=== PATIENT | female | born 1990 | race Caucasian/White ===

== ENCOUNTER 2016-10-25 11:23 | Emergency (ER) | payer OTHER ==
[2016-10-25 11:22] LABS: BASOPHIL# 0.1 X10e3 (0-0.3); BASOPHIL% 1.2 % (0-2.5); EOSINOPHIL# 0.1 X10e3 (0-0.7); HEMATOCRIT 41.9 % (35.0-45.0); HEMOGLOBIN 14.1 gm/dL (12.0-16.0); LYMPHOCYTE# 1.9 X10e3 (1.0-3.5); MEAN CELL VOLUME 84.4 FL (83-96); MEAN CORPUSCULAR HEMOGLOBIN 28.5 PG (28-34); MEAN CORPUSCULAR HGB CONC 33.7 g/dL (30-36); MEAN PLATELET VOLUME 10.5 FL (6.5-11.5); MONOCYTE# 0.5 X10e3 (0-1.0); MONOCYTE% 6.4 % (3.0-12.0); NEUTROPHIL# 5.8 X10e3 (1.5-7.1); NEUTROPHIL% 68.4 % (40-75); PLATELET COUNT 193 X10e3 (140-420); RED BLOOD COUNT 4.97 X10e (3.90-5.30); RED CELL DISTRIBUTION WIDTH 13.1 % (11.0-15.5); WHITE BLOOD COUNT 8.5 X10e3 (4.0-10.5)
[~2016-10-25 11:23] MED LIST: AUGMENTIN875 MG PO; BACTRIM DS TABL1 TA1 PO; BACTRIM DS TABL1 TA2 PO; BENADRYL25 M3 PO; ELIMITE60 GM TOP; MEDROL DOSEPAK4 MG PO; MOTRIN600 M1 PO; NO MEDICATIONS; PEPCID AC20 M2 PO; STERAPRED5 MG/DOSE1 PO; VOLTAREN50 MG PO; VOLTAREN75 MG PO; ZOFRAN ODT4 MG PO
[2016-10-25 11:26] LABS: DIFF IND NO
[2016-10-25 11:43] LABS: ALBUMIN SERUM 3.7 g/dL (3.5-5.0); BILIRUBIN,TOTAL 0.5 mg/dL (0.2-2.0); BUN/CREATININE RATIO 12.85; CALCIUM SERUM 8.7 mg/dL (8.4-10.2); CREATININE SERUM 0.7 mg/dL (0.6-1.4); GLOM FILT RATE Estimated 121.3 mL/min (>60); POTASSIUM 3.9 mmol/L (3.5-5.1); PROTEIN TOTAL SERUM 7.2 g/dL (6.0-8.3)
== END 2016-10-25 11:34 | disposition home or self-care (01) ==
LOC: SED 11:23
PROVIDERS: Physician Assistant
DX: R51 Headache (principal); F31.9 Bipolar disorder, unspecified; F17.200 Nicotine dependence, unspecified, uncomplicated
CPT/HCPCS: 36415; 80053; 84702; 85025; 96361; 96374; 99284; J2765

== ENCOUNTER 2016-10-31 21:34 | Emergency (ER) | payer OTHER ==
--- NOTE | ~2016-10-31 | US61 ---
[facility] A Service of [facility] RADIOLOGY TEXT RESULTS PATIENT: JOSE PARRISH LOCATION: SED : [birth year] UNIT #: [id number] AGE: [address]: Monica Gillespie APRN SEX: F ORDER DR: [id number] [address] [address] [id number] MR#: [id number] Acc #: [id number] NAME: JOSE PARRISH : 1990 SEX: F STUDY DATE/TIME: 10/31/2016 23:59 UNIT: SED ROOM: STUDY DESCRIPTION: US /Mat <14Wk / Attending Physician: Monica Gillespie A.P.R.N. Ordering Physician: Monica Gillespie A.P.R.N. [facility] This report is preliminary unless electronic signature is present. EXAM Ultrasound pelvis, early assessment, 10/31/2016 HISTORY 26-year-old female in the ED complaining of 4-day history of abdomen and pelvic pain during first trimester . TECHNIQUE Pelvic ultrasound examination was performed transabdominally and endovaginally. FINDINGS Single living intrauterine gestation. Estimated gestational age using crown-rump length and mean sac diameter is 8 weeks, 0 days with an TAY of 06/12/2017. The gestational sac is normally positioned within the central endometrial cavity. Trivial amount of subchorionic fluid is noted. Embryonic heart rate measures 168 beats per minute. Physiologic left ovary cyst measuring 2.3 cm. No suspicious adnexal region mass. Tiny amount of physiologic free pelvic fluid. IMPRESSION Single living intrauterine gestation at 8 weeks, 0 days. Dictated by... Isak Massey M.D. THIS IS AN ELECTRONICALLY VERIFIED REPORT Isak Massey M.D. at 11/01/2016 6:01 AM LENNYW/tello [facility] A Service of [facility] RADIOLOGY TEXT RESULTS PATIENT: JOSE PARRISH LOCATION: SED : 92 UNIT #: [id number] AGE: [address]: Monica Gillespie APRN SEX: F ORDER DR: TD: 11/01/2016 00:54 JOB #: [id number] MEDICAL IMAGING REPORT Page 1 of 1
[2016-10-31 22:27] LABS: URINE SOURCE CLEAN CATCH
[2016-10-31 22:30] LABS: URINE APPEARANCE CLEAR; URINE BILIRUBIN NEG (NEG); URINE BLOOD NEG (NEG); URINE COLOR YELLOW; URINE GLUCOSE NEG (NORM); URINE KETONE NEG (NEG); URINE LEUKOCYTE ESTERASE TRACE (NEG); URINE NITRATE NEG (NEG); URINE PH 5.5 (5-8); URINE PROTEIN NEG (NEG); URINE SPECIFIC GRAVITY >=1.030 (1.003-1.035); URINE UROBILINOGEN 0.2 MG/DL (NORM)
[2016-10-31 22:32] LABS: MICRO INDICATED? YES
[2016-10-31 22:38] LABS: CULTURE INDICATED? NO; URINE BACTERIA NEG (NEG); URINE RBC 0-2 /[HPF] (0-2)
[2016-10-31 22:39] LABS: URINE CRYSTALS CALCIUM OXALATE /[HPF]; URINE MUCUS PRESENT; URINE SQUAMOUS EPITHELIAL CELL MANY /[HPF]
[2016-10-31 23:30] LABS: BASOPHIL# 0.2 X10e3 (0-0.3); BASOPHIL% 1.1 % (0-2.5); EOSINOPHIL# 0.1 X10e3 (0-0.7); EOSINOPHIL% 0.4 % (0.0-7.0); HEMATOCRIT 42.1 % (35.0-45.0); HEMOGLOBIN 14.2 gm/dL (12.0-16.0); LYMPHOCYTE# 2.7 X10e3 (1.0-3.5); LYMPHOCYTE% 19.3 % (17.0-45.0); MEAN CELL VOLUME 84.4 FL (83-96); MEAN CORPUSCULAR HEMOGLOBIN 28.5 PG (28-34); MEAN CORPUSCULAR HGB CONC 33.7 g/dL (30-36); MEAN PLATELET VOLUME 10.2 FL (6.5-11.5); MONOCYTE# 0.8 X10e3 (0-1.0); MONOCYTE% 5.7 % (3.0-12.0); NEUTROPHIL# 10.4 X10e3 (1.5-7.1); NEUTROPHIL% 73.5 % (40-75); PLATELET COUNT 205 X10e3 (140-420); RED CELL DISTRIBUTION WIDTH 12.9 % (11.0-15.5); WHITE BLOOD COUNT 14.1 X10e3 (4.0-10.5)
[2016-10-31 23:33] LABS: DIFF IND NO
[2016-10-31 23:51] LABS: ALBUMIN SERUM 3.6 g/dL (3.5-5.0); BILIRUBIN,TOTAL 0.1 mg/dL (0.2-2.0); CALCIUM SERUM 8.7 mg/dL (8.4-10.2); CREATININE SERUM 0.6 mg/dL (0.6-1.4); GLOM FILT RATE Estimated 127.6 mL/min (>60); POTASSIUM 3.7 mmol/L (3.5-5.1); PROTEIN TOTAL SERUM 7.1 g/dL (6.0-8.3)
[2016-11-04 09:46] LABS: CHLAMYDIA TRACH Not Detected (Not Detected); N GONOR Not Detected (Not Detected)
== END 2016-11-01 01:28 | disposition home or self-care (01) ==
LOC: SED 21:34
PROVIDERS: Nurse Practitioner Family
DX: O99.89 Other specified diseases and conditions complicating pregnancy, childbirth and the puerperium (principal); R10.9 Unspecified abdominal pain; F17.200 Nicotine dependence, unspecified, uncomplicated; Z3A.08 8 weeks gestation of pregnancy
CPT/HCPCS: 76801; 76817; 80053; 81003; 83690; 84703; 85025; 87210; 87491; 87591; 87808; 87905; 99284

== ENCOUNTER 2017-02-11 22:13 | Emergency (ER) | payer OTHER ==
[~2017-02-11] VITALS: Ht 165.1 cm; Wt 99.8 kg
[2017-02-11] MEDS ORDERED: PRENATAL FORMU1 EAC1 PO (22:27)
[2017-02-11] MEDS ORDERED: MIRALAX17 GM PO (22:27)
[2017-02-11] MEDS ORDERED: FLEXERIL10 MG PO (22:27)
== END 2017-02-12 00:03 | disposition home or self-care (01) ==
LOC: SED 22:13
DX: O9A.212 Injury, poisoning and certain other consequences of external causes complicating pregnancy, second trimester (principal); T23.151A Burn of first degree of right palm, initial encounter; T23.101A Burn of first degree of right hand, unspecified site, initial encounter; O99.332 Smoking (tobacco) complicating pregnancy, second trimester; F17.200 Nicotine dependence, unspecified, uncomplicated; Z3A.01 Less than 8 weeks gestation of pregnancy; X19.XXXA Contact with other heat and hot substances, initial encounter; Y92.009 Unspecified place in unspecified non-institutional (private) residence as the place of occurrence of the external cause
CPT/HCPCS: 16000; 99283